=== PATIENT | female | born 1940 | race Two or more races ===

== ENCOUNTER 2022-01-14 21:34 | Emergency (ER) | payer SELFPAY ==
[~2022-01-14] VITALS: Ht 162.6 cm; Wt 84.1 kg
== END 2022-01-15 03:40 | disposition left against medical advice (07) ==
LOC: ER 21:36
DX: M54.9 Dorsalgia, unspecified (principal); Z53.21 Procedure and treatment not carried out due to patient leaving prior to being seen by health care provider